=== PATIENT | female | born 1985 | race Caucasian/White ===

== ENCOUNTER 2020-03-25 16:33 | Emergency (ER) | payer BC, SELFPAY ==
[~2020-03-25] VITALS: Ht 157.5 cm; Wt 68.0 kg
[2020-03-25 16:40] VITALS: BP 117/74
--- NOTE | 2020-03-25 16:44 | NUR ---
Pt taken to bed 3.
--- NOTE | 2020-03-25 16:51 | NUR ---
35 y/o female from home c/o sudden onset headache, jaw locked, and SOB 20 min [employer]. Pt states pain started when she was driving. States feeling of anxiousness. Pt c/o change in vision in right eye when sharp pain began in head, denies blurred vision at this time. RR even and unlabored, able to speak in full sentences. Awake and alert positioned for comfort. VSS
--- NOTE | 2020-03-25 16:53 | NUR ---
TOMY Proctor at bedside examining pt
[2020-03-25] MEDS ORDERED: ACETAMINOPHEN 325 MG TAB PO ONE (17:10)
--- NOTE | 2020-03-25 17:37 | NUR ---
Xray at bedside
--- NOTE | 2020-03-25 17:59 | NUR ---
TOMY Proctor is reevaluating the patient at bedside.
--- NOTE | 2020-03-25 18:31 | NUR ---
Resting in bed visible rise and fall of the chest. Pts needs met at this time. VSS. Will continue to monitor
[2020-03-25 18:57] VITALS: BP 120/69
--- NOTE | 2020-03-25 18:57 | NUR ---
Patient discharged with v/s stable. Written and verbal after care instructions given and explained. Patient alert, oriented and verbalized understanding of instructions. Ambulatory with steady gait. All questions addressed prior to discharge. ID band removed. Patient advised to follow up with PMD. Rx of Vistaril 25mg given. Patient educated on indication of medication including possible reaction and side effects. Opportunity to ask questions provided and answered.
== END 2020-03-25 18:57 | disposition home or self-care (01) ==
LOC: MED 16:33
DX: R00.2 Palpitations (principal); F17.210 Nicotine dependence, cigarettes, uncomplicated
CPT/HCPCS: 71045; 81025; 93005; 99283; Q0092